=== PATIENT | female | born 1965 | race Caucasian/White ===

== ENCOUNTER 2020-07-21 08:09 | Outpatient (RCR) | payer OTHER, SELFPAY ==
--- NOTE | 2020-07-21 08:38 | OTOPEVAL ---
Thank you for referring Carmen Jose to [facility].? The patient is scheduled to be seen for therapy? ____x/week for ___ weeks. Please review, sign, date and return this plan of care JERSON. I agree with and certify that the following plan of care is medically necessary. Referring Physician Date Admitting Provider: Attending Provider: Virginie Jimenez, PRODUCTION CONTROL COORDINATING CLERK Referring Provider: *OT Outpatient Evaluation Start: 07/21/20 07:05 Freq: Status: Active Protocol: [place] 07/21/20 07:05 [facility] [place]Rec[place] 07/21/20 08:34 [facility] [id number] Therapy Assessment Status Assessment Status Assessment Status Evaluation Evaluation Information Problem Diagnosis decreased ROM, decreased strength Onset 05/24/20 Cause R ulnar fx Subjective Information Patient reports that she fell Query Text:As Reported By Patient/ and broke her R wrist. Family Patient was in cast and had it removed July 18. Patient reports that things have been going well since having the cast removed. Patient reports that her R thumb is sore as well as limited supination. 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 Patient has a difficult time with painting and doing dishes. Patient reports moderate difficulty with opening containers, doing outside production inspector, and carrying objects. Patient is unable to perform recreation activities secondary to R wrist. Quick DASH: 56.8% Diagnostic Tests X-Rays For This Problem Yes Prior Level of Function Activity Level (Last 3 Months) Hand Dominance Right Activity of Daily Living Ability Independent Indoor/Home Mobility Independent Community Mobility Independent Stairs Ability Independent Functional Cognition (Planning, Shopping Independent , Taking Medications) Cooking Yes Cleaning Yes Laundry Yes Shopping Yes Driving Yes Home Setting Home Type House Living Situation With Spouse Mobility Assistive Devices (Used Last 3 None Months) Pain Ass
--- NOTE | 2020-08-12 10:07 | PCOTNOTE ---
OCCUPATIONAL THERAPY UPDATE FOR [facility] Subjective: Patient reports no complaints and feels her right wrist is doing very well. Patient reports no pain and states that she is able to perform all her job duties as well as ADLs and IADLs. Objective: Pain: 0/10 ROM: R wrist extension: 65, R wrist flexion: 70 Strength: Nanoelectronics Engineer: 30# Lateral Pinch: 9# Sensation: Within normal limits Patient reports and demonstrates independence with home exercise program. Assessment: Patient is a 55 year old female who has been seen for 6 OT sessions post R ulnar fracture. Patient has tolerated OT with good skill and has met all goals at this time. She has progressed with ROM and strength and demonstrates no pain as well as normal sensation. Patient is independent with home exercise program and is discharged from skilled OT services at this time. Plan: Patient is discharged from skilled OT services at this time secondary to goal obtainment and lack of further concerns. Thanks, Codie Recinos, OTR/L
== END 2020-08-12 14:15 | disposition home or self-care (01) ==
LOC: CHSOT 08:09
PROVIDERS: Visit Provider Nurse Practitioner Family
DX: S52.291D Other fracture of shaft of right ulna, subsequent encounter for closed fracture with routine healing (principal)
CPT/HCPCS: 97014; 97110; 97140; 97165; G0283

== ENCOUNTER 2020-11-13 10:03 | Outpatient (CLI) | payer OTHER, SELFPAY | END 2020-11-13 10:04 | disposition home or self-care (01) | LOC: CHSLAB 10:04 | PROVIDERS: PCP Family Medicine; Visit Provider Family Medicine | DX: T45.511A Poisoning by anticoagulants, accidental (unintentional), initial encounter (principal) | CPT/HCPCS: 36415; 85610 ==

== ENCOUNTER 2020-11-14 02:50 | Observation (INO) | payer OTHER, SELFPAY ==
[2020-11-14] VITALS (16 sets, daily range): BP systolic 108–143; BP diastolic 62–86; PULSE 60–80; RESP 16–20; TEMP 36.6–38.2; O2SAT 95–98; BMI 38.9
--- NOTE | ~2020-11-14 | CT_ITS ---
EXAMINATION: CT LE LT wo con DATE: 11/14/2020 04:04 INDICATION: Left thigh hematoma. TECHNIQUE: Computed tomography (CT) of the left thigh and knee was performed without intravenous cont rast. Automated exposure control and iterative reconstruction technique were employed. The dose-lengt h product was 1016.96 mGy-cm. COMPARISON: None FINDINGS: Bone alignment is normal. No fracture. There is mild osteoarthritis of left hip and left kn ee. No knee joint effusion. There is a hematoma in distal left sartorius muscle measuring 4.5 x 17 cm . There is subcutaneous fat stranding in the thigh with small subcutaneous hematomas, consistent with recent dog bite. No radiopaque foreign body. IMPRESSION: 1. Hematoma in distal left sartorius muscle. Reviewed, dictated and finalized at location A. MBLER TYPE BAR AND SEGMENT
--- NOTE | ~2020-11-14 | XR_ITS ---
XR hand RT 2V DATE: 11/14/2020 04:04 INDICATION: Hand injury, pain TECHNIQUE: AP and lateral views COMPARISON: None FINDINGS: Diffuse osteopenia. There is a healed were advanced healing distal ulnar shaft fracture. No recent fracture or dislocation. No periosteal reaction or bone destruction. IMPRESSION: Advanced healing or healed old distal ulnar shaft fracture Diffuse osteopenia Reviewed, dictated and finalized at location A. HOUSE LOGISTICS MANAGER
[2020-11-14] MEDS: MORPHINE SULFATE (*CRX) 2 MG/ML INJ IV PUSH ×2 (04:09→09:08)
[2020-11-14 04:10] LABS: Basophils Absolute Auto 0.04 K/mm3 (0.00-0.10); Basophils Percent Auto 0.7 % (0.0-1.0); Eosinophils Absolute Auto 0.14 K/mm3 (0.02-0.50); Eosinophils Percent Auto 2.5 % (1.0-6.0); Hematocrit 43.2 % (35.0-49.0); Hemoglobin 13.9 g/dL (12.0-15.0); Immature Granulocyte Absolute 0.02 K/mm3 (0.00-0.00); Immature Granulocyte Percent A 0.4 % (0.0-0.0); Immature Platelet Fraction Pct 2.9 % (1.0-7.0); Lymphocytes Absolute Auto 1.59 K/mm3 (1.10-4.50); Lymphocytes Percent Auto 28.2 % (18.0-42.0); Mean Corpuscular HGB Conc 32.2 g/dL (32.0-36.0); Mean Corpuscular Volume 90.2 fL (78.0-102.0); Mean Platelet Volume 10.9 fl (9.2-11.8); Monocytes Percent Auto 8.9 % (2.0-11.0); Neutrophils Absolute Auto 3.4 K/mm3 (1.7-7.2); Neutrophils Percent Auto 59.3 % (50.0-70.0); Platelet Count Result 87 K/mm3 (150-420); Red Blood Count 4.79 M/mm3 (4.20-5.40); Red Cell Distribution Width 14.2 % (11.6-14.4); White Blood Count 5.6 K/mm3 (4.8-10.8)
[2020-11-14] MEDS: SODIUM CHLORIDE 0.9% IV 1,000 ML 999 ML IV CONT (04:10)
[2020-11-14 04:25] LABS: Alanine Aminotransferase 36 U/L (14-59); Albumin Level 3.2 g/dL (3.4-5.0); Alkaline Phosphatase 134 U/L (46-116); Anion Gap 8 mmol/L (8-16); Aspartate Amino Transferase 41 U/L (15-37); Bilirubin,Total 0.9 mg/dL (0.00-1.00); Blood Urea Nitrogen 12 mg/dL (7-18); CRP 2.8 mg/dL (0.0-0.9); Calcium 8.7 mg/dL (8.5-10.1); Carbon Dioxide 30 mmol/L (21-32); Chloride 104 mmol/L (98-108); Estimated CRCL calculation 92 ml/min; Estimated Glomerular Filt Rate > 60; Glucose 108 mg/dL (70-99); Osmolality Calculated 294 mOsm/kg (285-295); Potassium 4.3 mmol/L (3.5-5.1); Sodium 142 mmol/L (136-145); Total Protein 6.9 g/dL (6.4-8.2)
[2020-11-14 04:29] LABS: Lactic Acid Reflex 1.2 mmol/L (0.4-2.0)
[2020-11-14 04:34] LABS: Prothrombin Time > 90.0 Seconds (9.50-12.10)
[2020-11-14 04:35] LABS: INR > 8.0
--- NOTE | 2020-11-14 04:42 | ED.LOWEXIN ---
HPI - Extremity Injury (Lower) General Chief Complaint: Extremity Injury, Lower Stated Complaint: Left leg and right hand third digit Source: patient Mode of arrival: ambulatory Limitations: no limitations History of Present Illness HPI Narrative: this is a 55-year-old female that presents with a hematoma to her left medial thigh after she had a dog bite approximately 10 to 11 days ago by her personal dog, did contact her primary care physician and and was seen at [facility] in [facility] emergency department and was given a dose of antibiotics and was sent home with p.o. antibiotics. INR yesterday was 8, patient is on Coumadin for DVTs of her lower extremities. The patient also has some a puncture wound with some swelling on her right hand. Patient presents this evening because of increasing pain, did ambulate with no paralysis of the lower extremity has a strong pulse on the left lower extremity, currently there is no drainage there is some warmth and tenderness over the left medial thigh and warmth and tenderness and swelling of the right hand. Patient has a history of DVTs currently on Coumadin and was advised to hold her Coumadin by her primary care physician, and has a history of thyroid disorder and her thyroid medication is currently on hold because of an upcoming thyroid ablation. Currently there is no fever or chills, no nausea vomiting no shortness of breath. complaint: thigh injury and leg injury Injury: Left: thigh ( hematoma) Type of Injury: other ( dog bite with hematoma left medial thigh) Place: home Severity: severe Severity scale (1-10): 9 Relieving factors: NSAID Exacerbating factors: palpation Context: other ( dog bite) Associated symptoms: swelling and ambulatory Other symptoms: none Treatments prior to arrival: NSAIDS Related Data Home Medications Medication Instructions Recorded Confirmed cephalexin 500 mg PO DAILY 11/14/20 11/14/20 metoprolol succinate 50 mg PO DAILY 11/14/20 11/14/20 tramadol 50 mg PO PRN PRN 11/14/20 11/14/20 warfarin 2 mg PO DAILY 11/14/20 11/14/20 Allergies Allergy/AdvReac Type Severity Reaction Status Date / Time No Known Allergies Allergy Verified 11/14/20 04:23 Review of Systems Review of Systems: All systems reviewed & are unremarkable except as noted in HPI and below PMFSH Past Medical History Medical History DVT (deep vein thrombosis) in Exam Const: General: no acute distress and alert Orientation/consciousness: patient oriented x3 HENMT: Head: normal to inspection Eyes: Conjunctivae: conjunctivae normal Pupils: Equal, round and reactive pupils present Neck: Neck: normal visual inspection, no lymphadenopathy and no meningeal signs Chest: Chest palpation & inspection: normal inspection of the chest Resp: Effort & Inspection: normal respiratory effort Auscultation: clear to auscultation bilaterally Cardio: Rate: regular rate Rhythm: regular rhythm GI: GI Palp: Yes Soft to palpation Percussion: Yes normal to percussion : General: Yes no CVA tenderness Skin: Other: has hematoma approximately 5x15cm tender with palpation with a good strong pedal pulse on the left upper medial thigh. Has a small puncture wound with some swelling of her right hand Neuro: General: patient oriented x3, moves all extremities, no meningeal signs and no focal motor deficits Extrem: Other: hematoma to her left medial thigh with swelling to her right hand Psych: Mental Status: mental status grossly normal Course Course Emergency Course: reassessment patient, patient received IV morphine 2 mg and her pain level has improved, reviewed CT and x-ray findings with the patient and reviewed her INR which was still above 8, and advised that we will be giving her subcu injection of vitamin K 10 mg and a dose of IV Zosyn. The patient understands it will be admitting her to the medical floor with pain control and IV
[2020-11-14 04:52] LABS: Creatine Kinase 134 U/L (26-192)
[2020-11-14] MEDS: PHYTONADIONE INJ 10 MG/ML AMP SUB-Q (04:57)
--- NOTE | 2020-11-14 06:17 | PC.NURSE ---
Pt to for services of the hospitalist. Pt is alert and oriented x4 and states her dogs were having a fight and she attempted to break up the fight; In doing so, she was bitten by one of the dogs. Pt has a hx of DVT's in both legs and takes coumadin. Pt was oriented to the room, bed, TV and call light system and pt doesnt voice any concerns at this time.
[2020-11-14] MEDS: LACTATED RINGERS 1,000 ML 100 ML IV CONT ×2 (06:49→21:43)
--- NOTE | 2020-11-14 07:37 | PM.IMHP ---
H&P: HPI History of Present Illness Date/Time: 11/14/20 07:37 patient was admitted into observation for dog bite hematoma elevated INR and will be receiving IV antibiotics Chief Complaint: dog bite and wound to right middle finger with swelling Narrative: Carmen Jose is a 55 year old female who comes in with pain in her right middle finger in 10 days after having been bit by her own dog. Patient did go to an outside facility and was given Keflex for the dog bite. Patient states this did not improve and her leg is more swollen as is the right middle finger from an accidental cut with a knife at home. Patient was given Zosyn in the ER and this will continue while hospitalized. Also patient is taking Coumadin for a DVT. Patient's INR was greater than 8 and was given vitamin K in the ER with a recheck of her INR being greater than 8. Patient is going to be receiving another dose of vitamin K as well as 2 units of FFP. Patient does not complain of any other issues at this time such as headache dizziness breathing problems chest pain abdominal pain and only has minimal tenderness in the left knee this morning however she did receive morphine prior to interview and exam. Review of Systems Constitutional: Constitutional: Reports no additional constitutional complaints, Denies body ache(s), Denies chills and Denies fever(s) Cardiovascular: Cardiovascular: Reports no additional cardiovascular complaints, Denies chest pain, Denies chest pain at rest and Denies chest pain with activity Respiratory: Respiratory: Reports no additional respiratory complaints, Denies dyspnea and Denies dyspnea on exertion Gastrointestinal: Gastrointestinal: Reports no additional gastrointestinal complaints Genitourinary: Genitourinary: Reports no additional female genitourinary complaints Musculoskeletal: Comments: Patient admits to swelling to the left leg above the knee midline along with bite prince and bruising from the knee to the mid upper thigh. And she also notes swelling to the right middle finger from accidental cut with a knife. Neurologic: Comments: Patient denies any loss of sensation PMFSH Past Medical History Medical History (Updated 11/14/20 @ 12:49 by ADRIÁN Belle) Closed lumbar vertebral fracture DVT (deep vein thrombosis) in Hypertension Surgical History Surgical History (Updated 11/14/20 @ 12:38 by ADRIÁN Belle) H/O vascular surgery History of partial hysterectomy Previous back surgery Family History Family History Mother Diabetes mellitus Social History Social History Smoking status: Never smoker Second hand tobacco smoke exposure: No Alcohol intake: never Substance use: never Substance use type: does not use Gender identity (if verbalized by the patient): Female Sexual Orientation (if Verbalized by the Patient): Straight or Heterosexual Spiritual care concerns: No Meds Home Medications and Allergies Home Medications Medication Instructions Recorded Confirmed Type cephalexin 500 mg PO DAILY 11/14/20 11/14/20 History metoprolol succinate 50 mg PO DAILY 11/14/20 11/14/20 History tramadol 50 mg PO PRN PRN 11/14/20 11/14/20 History warfarin 2 mg PO DAILY 11/14/20 11/14/20 History Allergies Allergy/AdvReac Type Severity Reaction Status Date / Time No Known Allergies Allergy Verified 11/14/20 04:23 Vital Signs Vital Signs - 24 hr 11/14/20 02:50 11/14/20 05:02 11/14/20 05:04 Temperature 97.8 F 97.8 F Pulse Rate 75 61 60 Respiratory Rate 20 20 18 Blood Pressure 143/77 H 128/72 128/72 Pulse Oximetry 97 97 97 11/14/20 06:00 11/14/20 07:27 Temperature 98.8 F 98.5 F Pulse Rate 64 66 Respiratory Rate 20 18 Blood Pressure 138/76 115/67 Pulse Oximetry 96 95 Exam Const: General: cooperative, comfortable, no acute distress, alert, awake
[2020-11-14] MEDS: METOPROLOL SUCCINATE EXT REL 50 MG TABCR PO (09:03)
[2020-11-14] MEDS: ONDANSETRON INJ 4 MG/2 ML VIAL IV PUSH (09:06)
--- NOTE | 2020-11-14 09:09 | PC.NURSE ---
Morphine given for pain in right index finger and left leg, index finger swollen, noted to have injury by utility knife prior to arrival
--- NOTE | 2020-11-14 10:08 | PC.NURSE ---
pain slightly improved, no nausea from shot, fluids infusing and left leg on pillow, no change in appearance of right middle finger
--- NOTE | 2020-11-14 11:32 | PC.NURSE ---
ice to finger for comfort
[2020-11-14 12:08] LABS: Prothrombin Time > 90.0 Seconds (9.50-12.10)
--- NOTE | 2020-11-14 12:08 | PC.NURSE ---
INR reported to hospitalist, still greater than 8.0, awaiting orders
[2020-11-14 12:09] LABS: INR > 8.0
[2020-11-14] MEDS: PHYTONADIONE ADULT INJ 10 MG in DEXTROSE 5% IN WATER 50 ML 100 MG IVPB (12:41)
[2020-11-14] MEDS: SODIUM CHLORIDE 0.9% IV 250 ML 30 ML IV CONT (13:35)
[2020-11-14 16:23] LABS: Prothrombin Time 20.8 Seconds (9.50-12.10)
--- NOTE | 2020-11-14 18:22 | PC.NURSE ---
Patient completed blood product infusion. No c/o related to infusion. Patient up to bathroom as needed. Gait steady. Ate small amount of supper, taking p.o. fluids well.
[2020-11-14] MEDS: ACETAMINOPHEN 325 MG TABLET 650 MG PO (19:29)
--- NOTE | 2020-11-14 19:30 | PC.NURSE ---
pt given fresh ice pack and second ice pack for knee and finger, pt resting in bed, pain medication given
[2020-11-14] MEDS: HYDROcodone/acetaminophen (*CRX) 5-325 MG TABLET 1 TAB PO (21:43)
--- NOTE | 2020-11-14 21:45 | PC.NURSE ---
new bag of iv fluids began, fluids infusing per order, pain not relieved with previous medication, a different pain med given see MAR
--- NOTE | 2020-11-14 23:40 | PC.NURSE ---
iv antibiotics infusing, pt denies any other needs at this time, belongings and call light within reach
[2020-11-15] VITALS (7 sets, daily range): BP systolic 120–133; BP diastolic 68–75; PULSE 60–78; RESP 18; TEMP 36.6–37.7; O2SAT 97–99
--- NOTE | 2020-11-15 01:10 | PC.NURSE ---
pt resting in bed watching tv, denies any pain or needs at this time, no evidence of distress noticed, belongings within reach.
--- NOTE | 2020-11-15 02:35 | PC.NURSE ---
pt resting in bed, no evidence of distress noted, iv fluids infusing per order, belongings and call light within reach
[2020-11-15] MEDS: HYDROcodone/acetaminophen (*CRX) 5-325 MG TABLET 1 TAB PO ×4 (04:39→20:11)
[2020-11-15 05:43] LABS: Basophils Absolute Auto 0.02 K/mm3 (0.00-0.10); Basophils Percent Auto 0.5 % (0.0-1.0); Eosinophils Absolute Auto 0.09 K/mm3 (0.02-0.50); Eosinophils Percent Auto 2.3 % (1.0-6.0); Hematocrit 37.2 % (35.0-49.0); Hemoglobin 12.2 g/dL (12.0-15.0); Immature Granulocyte Absolute 0.01 K/mm3 (0.00-0.00); Immature Granulocyte Percent A 0.3 % (0.0-0.0); Immature Platelet Fraction Pct 2.7 % (1.0-7.0); Lymphocytes Absolute Auto 1.01 K/mm3 (1.10-4.50); Lymphocytes Percent Auto 26.2 % (18.0-42.0); Mean Corpuscular HGB Conc 32.8 g/dL (32.0-36.0); Mean Corpuscular Hemoglobin 29.8 pg (27.0-31.0); Mean Corpuscular Volume 90.7 fL (78.0-102.0); Mean Platelet Volume 10.6 fl (9.2-11.8); Neutrophils Absolute Auto 2.2 K/mm3 (1.7-7.2); Neutrophils Percent Auto 57.7 % (50.0-70.0); Platelet Count Result 69 K/mm3 (150-420); Red Cell Distribution Width 14.1 % (11.6-14.4)
[2020-11-15 05:56] LABS: INR 1.4; Prothrombin Time 14.4 Seconds (9.50-12.10)
[2020-11-15 05:59] LABS: Anion Gap 6 mmol/L (8-16); Blood Urea Nitrogen 8 mg/dL (7-18); Calcium 8.2 mg/dL (8.5-10.1); Carbon Dioxide 31 mmol/L (21-32); Chloride 105 mmol/L (98-108); Estimated CRCL calculation 93 ml/min; Estimated Glomerular Filt Rate > 60; Glucose 96 mg/dL (70-99); Osmolality Calculated 292 mOsm/kg (285-295); Sodium 142 mmol/L (136-145)
[2020-11-15] MEDS: METOPROLOL SUCCINATE EXT REL 50 MG TABCR PO (09:03)
[2020-11-15] MEDS: LACTATED RINGERS 1,000 ML 100 ML IV CONT ×2 (09:05→20:10)
--- NOTE | 2020-11-15 09:20 | PC.NURSE ---
l leg is knee up into thigh is different shades of purple and greens. dry wound on on top of thigh and bandaid to posterior. thigh is firm. ice pack applied. leg up on pillow. pain med given. see dec. r finger is swollen and tender to touch and ice pack applied. [place]
[2020-11-15] MEDS: WARFARIN (*PBKC) 2 MG TABLET PO (13:28)
--- NOTE | 2020-11-15 13:28 | PM.IMPN ---
Progress Note: A&P Assessment and Plan (1) Dog bite: Qualifiers: Encounter type: initial encounter Qualified Code(s): W54.0XXA - Bitten by dog, initial encounter Code(s): W54.0XXA - Bitten by dog, initial encounter Status: Acute Assessment and Plan: 11/14/2020 patient is receiving Zosyn, bite sites have scabbed over 11/15/2020 Continue with Zosyn, wounds healing, no drainage, swelling improved, remains tender (2) Swelling of right middle finger: Code(s): M79.89 - Other specified soft tissue disorders Status: Acute Assessment and Plan: 11/14/2020 patient has normal sensation to the tip of the swollen middle finger right hand, no drainage at the wound site, simple dressing in place, patient is on Zosyn 11/15/2020 continue with normal sensation to the tip of the finger, continue with Zosyn and simple dressing (3) Elevated INR: Code(s): R79.1 - Abnormal coagulation profile Status: Acute Assessment and Plan: 11/14/2020 patient is on Coumadin for DVT however that is being held at this time due to her elevated INR of greater than 8, received vitamin K in the ER, repeat INR again was greater than 8 and patient is to receive another 10 mg of vitamin K and 2 units fresh frozen plasma and then will recheck INR at that time 11/15/2020 INR 1.4 today, restarting Coumadin and will monitor closely (4) Hematoma: Code(s): T14.8XXA - Other injury of unspecified body region, initial encounter Status: Acute Assessment and Plan: 11/14/2020 ice to site with elevation, morphine for pain control, normal sensation to lower leg, pulses intact 11/15/2020 continue as above, [place] added yesterday as a longer lasting pain control medication (5) DVT (deep vein thrombosis) in : Code(s): O22.30 - Deep phlebothrombosis in , unspecified trimester Status: Acute Assessment and Plan: 11/14/2020 Coumadin was held due to elevated INR as noted above 11/15/2020 as noted above restarting Coumadin now that INR is 1.4 (6) Hypertension: Code(s): I10 - Essential (primary) hypertension Status: Acute Assessment and Plan: 11/14/2020 vital signs stable at this time continue metoprolol, monitor vital signs, make changes as necessary to medication 11/15/2020 VSS no changes to [id number] at this time Subjective Date/time seen: 11/15/20 13:28 Pt states that she is feeling fine today. States the swollen area is slide machine tender to touch. Explained to Pt that her coumadin was going to be restarted. She was also educated on diet, vitamins, and taking other medication with coumadin. Pt verbalized understanding. Pt denies breathing issues, no CP, no abdominal issues, no numbness to the finger or left lower leg. Review of Systems Constitutional: Constitutional: Reports no additional constitutional complaints Cardiovascular: Cardiovascular: Reports no additional cardiovascular complaints, Denies chest pain, Denies chest pain at rest and Denies chest pain with activity Respiratory: Respiratory: Reports no additional respiratory complaints, Denies chest congestion, Denies dyspnea and Denies dyspnea on exertion Gastrointestinal: Gastrointestinal: Reports no additional gastrointestinal complaints Genitourinary: Genitourinary: Reports no additional female genitourinary complaints Musculoskeletal: Musculoskeletal: Reports joint swelling (inner aspect of left knee d/t dog bit and hematoma) Exam Const: General: cooperative, comfortable, no acute distress, alert, awake and Physically active Nutritional Appearance: overweight Resp: Effort & Inspection: normal respiratory effort Auscultation: clear to auscultation bilaterally Cardio: Rate: regular rate Heart sounds: S1 normal heart sound present and S2 normal heart sound present Skin: Trauma: puncture (dog bite wounds healing well, area tendeer to touch, bruising) Neuro: General: oriented to person, oriented to place and
--- NOTE | 2020-11-15 17:54 | PC.NURSE ---
pt states she feels warm, temp checked 99.7, tylenol declined at this time
[2020-11-16] VITALS: BP 106/61; PULSE 65; RESP 16; TEMP 36.3; O2SAT 96
[2020-11-16] MEDS: HYDROcodone/acetaminophen (*CRX) 5-325 MG TABLET 1 TAB PO ×3 (00:12→11:18)
[2020-11-16 05:34] LABS: Hematocrit 37.8 % (35.0-49.0); Hemoglobin 12.3 g/dL (12.0-15.0); Immature Platelet Fraction Pct 2.9 % (1.0-7.0); Mean Corpuscular HGB Conc 32.5 g/dL (32.0-36.0); Mean Corpuscular Hemoglobin 29.8 pg (27.0-31.0); Mean Corpuscular Volume 91.5 fL (78.0-102.0); Platelet Count Result 57 K/mm3 (150-420); Red Blood Count 4.13 M/mm3 (4.20-5.40); Red Cell Distribution Width 14.1 % (11.6-14.4); White Blood Count 2.8 K/mm3 (4.8-10.8)
[2020-11-16 05:43] LABS: INR 1.1
[2020-11-16 05:47] LABS: Anion Gap 3 mmol/L (8-16); Blood Urea Nitrogen 8 mg/dL (7-18); Calcium 8.6 mg/dL (8.5-10.1); Carbon Dioxide 32 mmol/L (21-32); Chloride 107 mmol/L (98-108); Estimated CRCL calculation 88 ml/min; Estimated Glomerular Filt Rate > 60; Glucose 95 mg/dL (70-99); Osmolality Calculated 292 mOsm/kg (285-295); Potassium 4.7 mmol/L (3.5-5.1); Sodium 142 mmol/L (136-145)
[2020-11-16] MEDS: LACTATED RINGERS 1,000 ML 100 ML IV CONT (06:44)
[2020-11-16 08:00] VITALS: BP 122/71; PULSE 64; RESP 18; TEMP 37.2; O2SAT 95
[2020-11-16 09:11] VITALS: PULSE 64
[2020-11-16] MEDS: METOPROLOL SUCCINATE EXT REL 50 MG TABCR PO (09:11)
--- NOTE | 2020-11-16 10:54 | PM.DS ---
DS: Admitting Diagnosis Admitting Diagnosis Admitting Diagnosis: elevated INR, dog bite DS: Discharge Diagnosis Discharge Diagnosis (1) Dog bite: Qualifiers: Encounter type: initial encounter Qualified Code(s): W54.0XXA - Bitten by dog, initial encounter Code(s): W54.0XXA - Bitten by dog, initial encounter Status: Acute Assessment and Plan: 11/14/2020 patient is receiving Zosyn, bite sites have scabbed over 11/15/2020 Continue with Zosyn, wounds healing, no drainage, swelling improved, remains tender 11/16/2020 patient had her tetanus shot about 11 days ago when she had cut her finger, will send script to patient's pharmacy for Augmentin, swelling some improved, patient ambulating well, slightly less tender today (2) Swelling of right middle finger: Code(s): M79.89 - Other specified soft tissue disorders Status: Acute Assessment and Plan: 11/14/2020 patient has normal sensation to the tip of the swollen middle finger right hand, no drainage at the wound site, simple dressing in place, patient is on Zosyn 11/15/2020 continue with normal sensation to the tip of the finger, continue with Zosyn and simple dressing 11/16/2020 patient still has sensation to tip of her finger swelling is down only little, will give Augmentin as noted above (3) Elevated INR: Code(s): R79.1 - Abnormal coagulation profile Status: Acute Assessment and Plan: 11/14/2020 patient is on Coumadin for DVT however that is being held at this time due to her elevated INR of greater than 8, received vitamin K in the ER, repeat INR again was greater than 8 and patient is to receive another 10 mg of vitamin K and 2 units fresh frozen plasma and then will recheck INR at that time 11/15/2020 INR 1.4 today, restarting Coumadin and will monitor closely 11/16/[address] Peace, retail pos specialist/oncologist, regarding anticoagulation for patient's previous DVT for which she was started on Coumadin back in 1992 and the fact that she is thrombocytopenic with a platelet count of 57 today, recommendation was to not have patient on anticoagulation since her body is already anticoagulated due to her low platelet count, patient will need to follow-up with Dr. Peace within about a week, I appreciate consultation with Dr. Peace (4) Hematoma: Code(s): T14.8XXA - Other injury of unspecified body region, initial encounter Status: Acute Assessment and Plan: 11/14/2020 ice to site with elevation, morphine for pain control, normal sensation to lower leg, pulses intact 11/15/2020 continue as above, [place] added yesterday as a longer lasting pain control medication 11/16/2020 patient has not required any of her [place] with the exception of 1 dose on the , pain seems tolerable, she continues use ice pack (5) DVT (deep vein thrombosis) in : Code(s): O22.30 - Deep phlebothrombosis in , unspecified trimester Status: Acute Assessment and Plan: 11/14/2020 Coumadin was held due to elevated INR as noted above 11/15/2020 as noted above restarting Coumadin now that INR is 1.4 11/16/2020 please see note above under elevated INR for discharge plan (6) Hypertension: Code(s): I10 - Essential (primary) hypertension Status: Acute Assessment and Plan: 11/14/2020 vital signs stable at this time continue metoprolol, monitor vital signs, make changes as necessary to medication 11/15/2020 VSS no changes to [id number] at this time 11/16/2020 vital signs stable will not be making any changes to medication at this time DS: Summary Hospital Course Hospital Course: patient was given antibiotics for her dog bite and her INR that was elevated to greater than 8 has resolved and with the consultation with Dr. Peace patient does not need to be on anticoagulation therapy and will follow-up with this doctor after discharge. Time Spent with Patient Time attestation: Total time spent providing and/or coordinating d
--- NOTE | 2020-11-18 11:00 | PC.NURSE ---
Pt states she received and understood her discharge instructions. She also states It was nice, they were all really nice to me .
== END 2020-11-16 13:30 | disposition home or self-care (01) ==
LOC: CHSED 04:53 → CHS2ND 07:52
PROVIDERS: Family Medicine; Nurse Practitioner Family; Admitting Provider Emergency Medicine; Emergency Provider Emergency Medicine; PCP Family Medicine; Visit Provider Emergency Medicine
DX: S70.12XD Contusion of left thigh, subsequent encounter (principal); L03.116 Cellulitis of left lower limb; R79.1 Abnormal coagulation profile; D69.6 Thrombocytopenia, unspecified; S61.212D Laceration without foreign body of right middle finger without damage to nail, subsequent encounter; I10 Essential (primary) hypertension; W26.0XXD Contact with knife, subsequent encounter; W54.0XXD Bitten by dog, subsequent encounter; Z86.718 Personal history of other venous thrombosis and embolism; Z79.01 Long term (current) use of anticoagulants
CPT/HCPCS: 36415; 36430; 73120; 73700; 80048; 80053; 82550; 83605; 85025; 85027; 85055; 85610; 86140; 86900; 86901; 87040; 96361; 96365; 96366; 96367; 96372; 96375; 96376; 99285; A9270; G0378; G0379; J2270; J2405; J2543; J3430; J7030; J7050; J7120; P9017

== ENCOUNTER 2020-11-17 11:56 | Outpatient (RCR) | payer OTHER, SELFPAY ==
[2020-11-17 12:24] LABS: INR 1.1; Prothrombin Time 11.5 Seconds (9.50-12.10)
== END 2021-02-15 23:59 | disposition home or self-care (01) ==
LOC: CHSLAB 11:56
PROVIDERS: PCP Family Medicine; Visit Provider Family Medicine
DX: T45.511A Poisoning by anticoagulants, accidental (unintentional), initial encounter (principal)
CPT/HCPCS: 36415; 85610

== ENCOUNTER 2020-12-31 08:58 | Outpatient (CLI) | payer OTHER, SELFPAY ==
[2021-01-03 07:55] LABS: Total Triiodothyronine (T3) 125 ng/dL (76-181)
== END 2020-12-31 08:59 | disposition home or self-care (01) ==
LOC: CHSLAB 09:00
PROVIDERS: PCP Family Medicine
DX: E05.00 Thyrotoxicosis with diffuse goiter without thyrotoxic crisis or storm (principal)
CPT/HCPCS: 36415; 84480

== ENCOUNTER 2021-02-05 13:26 | Outpatient (CLI) | payer OTHER, SELFPAY ==
--- NOTE | 2021-02-05 13:45 | ECG_ITS ---
Measurements Intervals [place] Rate: 63 P: 64 ND: 140 QRS: 88 QRSD: 82 T: 59 QT: 405 QTc: 416 Interpretive Statements SINUS RHYTHM LOW QRS VOLTAGE IN PRECORDIAL LEADS NONSPECIFIC ST & T-WAVE ABNORMALITY- ANTEROLATERAL LEADS BASELINE ARTIFACT- II, III, AVF BORDERLINE ECG Electronically Signed On 02-05-2021 15:09:30 CDT by Tonio Fountain D.O.
== END 2021-02-05 13:27 | disposition home or self-care (01) ==
LOC: CHSCARD 13:27
PROVIDERS: PCP Family Medicine; Visit Provider Family Medicine
DX: E05.90 Thyrotoxicosis, unspecified without thyrotoxic crisis or storm (principal)
CPT/HCPCS: 93005

== ENCOUNTER 2021-05-08 11:25 | Outpatient (CLI) | payer OTHER, SELFPAY ==
--- NOTE | ~2021-05-08 | XR_ITS ---
EXAMINATION: XR lumbar spine 2-3V DATE: 05/08/2021 11:50 INDICATION: Lumbar radiculopathy TECHNIQUE: Anteroposterior and lateral views of the lumbar spine, and cone-down lateral view of the l umbosacral junction were obtained. COMPARISON: None FINDINGS: There is no fracture, dislocation, or subluxation. The vertebral body heights are maintaine d. There is moderate to severe loss of intervertebral disc space height at L5-S1. Mild loss of interv ertebral disc space height is present throughout the remainder of the lumbar spine. There is moderate facet osteoarthritis of the lower lumbar spine. Calcified atherosclerosis is noted. IMPRESSION: 1. Moderate lower lumbar spondylosis without acute findings. Reviewed, dictated and finalized at location A.
== END 2021-05-08 11:26 | disposition home or self-care (01) ==
LOC: CHSIMG 11:28
PROVIDERS: PCP Family Medicine; Visit Provider Family Medicine
DX: M54.16 Radiculopathy, lumbar region (principal)
CPT/HCPCS: 72100

== ENCOUNTER 2021-07-11 06:37 | Outpatient (CLI) | payer OTHER, SELFPAY ==
--- NOTE | ~2021-07-11 | MR_ITS ---
EXAMINATION: MR lumbar spine wo con DATE: 07/11/2021 07:34 INDICATION: Lumbar radiculopathy. TECHNIQUE: Magnetic resonance imaging (MRI) of the lumbar spine was performed without intravenous con trast. Sequences included sagittal T2-weighted FSE, sagittal T2-weighted FS FSE, sagittal T1-weighted FSE, and axial T2-weighted FSE. COMPARISON: Lumbar spine radiographs 05/08/2021 FINDINGS: Bone alignment is normal. Vertebral body heights are normal. There is mildly decreased disc height at L4-L5 and severely decreased disc height at L5-S1 with endplate remodeling. The distal spi nal cord signal intensity is normal. The conus medullaris is at L1. There are cysts in right kidney m easuring up to 2.3 cm. The following disc levels are specifically discussed: L1-L2: The disc does not extend beyond the endplate margin. There is mild bilateral facet joint osteo arthritis. There is no neural foraminal stenosis. There is no central canal stenosis. L2-L3: There is a left foraminal protrusion. There is mild bilateral facet joint osteoarthritis. Ther e is mild left neural foraminal stenosis. There is no central canal stenosis. L3-L4: There is a left foraminal protrusion. There is mild bilateral facet joint osteoarthritis. Ther e is mild left neural foraminal stenosis. There is no central canal stenosis. L4-L5: There is a left central protrusion with mass effect on left L5 nerve root in left lateral rece ss. There is moderate bilateral facet joint osteoarthritis. There is mild bilateral neural foraminal stenosis. There is mild central canal stenosis. There is severe stenosis of left lateral recess. L5-S1: The disc is bulging. There is severe bilateral facet joint osteoarthritis. There is mild bilat eral neural foraminal stenosis. There is no central canal stenosis. IMPRESSION: 1. Severe lower lumbar spondylosis. Of note, an extrusion at L4-L5 exerts mass effect on left L5 nerv e root. Reviewed, dictated and finalized at location A. IMPRESSION: 1. Severe lower lumbar spondylosis. Of note, an extrusion at L4-L5 exerts mass effect on left L5 nerve root.
== END 2021-07-11 06:38 | disposition home or self-care (01) ==
LOC: CHSIMG 06:40
PROVIDERS: PCP Family Medicine; Visit Provider Physician Assistant
DX: M54.16 Radiculopathy, lumbar region (principal); M47.816 Spondylosis without myelopathy or radiculopathy, lumbar region
CPT/HCPCS: 72148

== ENCOUNTER 2022-07-08 10:12 | Outpatient (CLI) | payer OTHER, SELFPAY ==
[2022-07-08 10:55] LABS: Free T4 Free Thyroxine 1.58 ng/dL (0.76-1.46)
[2022-07-08 11:21] LABS: Thyroid Stimulating Hormone < 0.01 uIU/mL (0.36-3.74)
== END 2022-07-08 10:13 | disposition home or self-care (01) ==
LOC: CHSLAB 10:19
PROVIDERS: PCP Family Medicine
DX: E05.90 Thyrotoxicosis, unspecified without thyrotoxic crisis or storm (principal)
CPT/HCPCS: 36415; 84439; 84443

== ENCOUNTER 2022-12-23 07:01 | Outpatient (CLI) | payer OTHER, SELFPAY ==
--- NOTE | ~2022-12-23 | MR_ITS ---
MRI of the lumbar spine Clinical History: Chronic back pain, prior surgery Technique: Axial T2-weighted images, and sagittal T1-weighted, T2-weighted, and T2 fat-sat images wer e acquired. COMPARISON: 07/11/2021 Findings: No acute fracture or subluxation seen in the lumbar spine. Probable mild chronic compressio n deformity of T11 versus Schmorl's node. Additional Schmorl's node noted at the superior endplate of T12 with minimal marrow edema. No bone marrow signal abnormality seen in the lumbar spine itself. At L1-L2, L2-L3, there is no disc bulge or herniation. Minimal facet joint degenerative changes prese nt at these levels. No spinal canal stenosis or neural foraminal narrowing. At L3-L4, there is minimal disc bulge and facet arthropathy. There is mild central canal stenosis. Ne ural foramina are preserved. At L4-L5, there is small central disc protrusion with mild facet arthropathy. There is minimal centra l canal stenosis. Bilateral neural foramina are preserved. At L5-S1, there is no disc bulge or herniation. There is no spinal canal stenosis or definite neural foraminal narrowing. Paravertebral soft tissues are unremarkable. Impression: Mild degenerative spondylosis in the lumbar spine, as detailed above. Probable subacute Schmorl's node of the superior endplate of T12, with mild marrow edema. Probable mild chronic compression deformity at T11 versus Schmorl's node. Reviewed, dictated and finalized at [facility]. Impression: Mild degenerative spondylosis in the lumbar spine, as detailed above. Probable subacute Schmorl's node of the superior endplate of T12, with mild mar row edema. Probable mild chronic compression deformity at T11 versus Schmorl's node.
== END 2022-12-23 07:02 | disposition home or self-care (01) ==
LOC: CHSIMG 07:03
PROVIDERS: PCP Family Medicine
DX: M54.16 Radiculopathy, lumbar region (principal); M43.06 Spondylolysis, lumbar region
CPT/HCPCS: 72148

== ENCOUNTER 2023-01-26 07:50 | Outpatient (CLI) | payer OTHER, SELFPAY ==
--- NOTE | ~2023-01-26 | CT_ITS ---
Non-contrast CT scan of the Abdomen and Pelvis Clinical indication: Abdominal pain Technique: 2.5 mm axial scans were obtained through the abdomen and pelvis without intravenous or or al contrast. Dose reduction technique was used on this scan by utilizing automated exposure control a nd iterative reconstruction technique. The dose-length product (DLP) was 1252.83 mGy-cm. Findings: Images through the lung bases reveal no abnormalities. There is no evidence of renal or ureteral calculi. The kidneys and the ureters are nondilated. Nodular contour of the liver noted. No focal hepatic mass or biliary dilatation seen. Spleen is enlar ged, measuring 15.2 cm in length. The pancreas, gallbladder, and adrenals appear normal. There is no aortic aneurysm. There is no evidence of bowel obstruction. Images through the pelvis were performed. There is no evidence of ascites or lymphadenopathy. Urinary bladder unremarkable. No adnexal mass seen. Mild chronic compression deformity of T11 noted. Impression: Cirrhotic liver with associated splenomegaly. Mild chronic compression deformity of T11. Reviewed, dictated and finalized at [facility]. Impression: Cirrhotic liver with associated splenomegaly. Mild chronic compression deformity of T11.
== END 2023-01-26 07:51 | disposition home or self-care (01) ==
LOC: CHSIMG 07:51
PROVIDERS: PCP Family Medicine; Visit Provider Family Medicine
DX: R10.9 Unspecified abdominal pain (principal); K74.60 Unspecified cirrhosis of liver; R16.1 Splenomegaly, not elsewhere classified; M43.8X4 Other specified deforming dorsopathies, thoracic region
CPT/HCPCS: 74176

== ENCOUNTER 2023-02-24 07:06 | Outpatient (CLI) | payer OTHER, SELFPAY ==
--- NOTE | ~2023-02-24 | MM_ITS ---
EXAMINATION: MM screening corry BI w dmitry HISTORY: Screening mammogram TECHNIQUE: Craniocaudal and mediolateral oblique 3-D tomosynthesis images were obtained and synthetic 2-D images were generated. CAD analysis was submitted and interpreted. COMPARISON: No prior mammogram is available for comparison at this institution. BREAST PARENCHYMAL COMPOSITION: The breasts are almost entirely fatty. FINDINGS: No suspicious mass, calcification, or architectural distortion are identified in either alia ast to suggest malignancy. IMPRESSION: 1. No mammographic evidence of malignancy. 2. Recommend routine screening mammography in one year. BI-RADS Category 1: Negative Reviewed, dictated and finalized at location A.
[2023-02-24 08:31] LABS: Thyroid Stimulating Hormone 1.04 uIU/mL (0.36-3.74)
== END 2023-02-24 07:07 | disposition home or self-care (01) ==
PROVIDERS: PCP Family Medicine
DX: Z12.31 Encounter for screening mammogram for malignant neoplasm of breast (principal); E05.90 Thyrotoxicosis, unspecified without thyrotoxic crisis or storm
CPT/HCPCS: 36415; 77063; 77067; 84443

== ENCOUNTER 2023-03-21 10:09 | Outpatient (CLI) | payer OTHER, SELFPAY ==
[2023-03-21 10:57] LABS: Prothrombin Time 63.1 Seconds (9.50-12.10)
[2023-03-21 11:04] LABS: INR 6.6
== END 2023-03-21 10:10 | disposition home or self-care (01) ==
LOC: CHSLAB 10:12
PROVIDERS: PCP Family Medicine; Visit Provider Registered Nurse
DX: Z79.01 Long term (current) use of anticoagulants (principal)
CPT/HCPCS: 36415; 85610

== ENCOUNTER 2023-03-24 07:15 | Outpatient (CLI) | payer OTHER, SELFPAY ==
[2023-03-24 08:00] LABS: INR 2.2; Prothrombin Time 22.6 Seconds (9.50-12.10)
== END 2023-03-24 07:16 | disposition home or self-care (01) ==
LOC: CHSLAB 07:18
PROVIDERS: PCP Family Medicine; Visit Provider Registered Nurse
DX: Z79.01 Long term (current) use of anticoagulants (principal)
CPT/HCPCS: 36415; 85610

== ENCOUNTER 2024-01-20 07:39 | Outpatient (CLI) | payer OTHER, SELFPAY ==
[2024-01-20 08:18] LABS: INR 3.2; Prothrombin Time 32.3 Seconds (9.50-12.1)
== END 2024-01-20 07:40 | disposition home or self-care (01) ==
LOC: CHSLAB 07:41
PROVIDERS: PCP Family Medicine; Visit Provider Family Medicine
DX: Z79.01 Long term (current) use of anticoagulants (principal)
CPT/HCPCS: 36415; 85610

== ENCOUNTER 2024-03-15 13:31 | Outpatient (CLI) | payer OTHER, SELFPAY ==
--- NOTE | ~2024-03-15 | MM_ITS ---
EXAMINATION: MM screening corry BI w dmitry HISTORY: Screening TECHNIQUE: Craniocaudal and mediolateral oblique 3-D tomosynthesis images were obtained and synthetic 2-D images were generated. CAD analysis was submitted and interpreted. COMPARISON: 02/24/2023 BREAST PARENCHYMAL COMPOSITION: Not dense: There are scattered areas of fibroglandular density. FINDINGS: There is no evidence of suspicious mass, calcification, or architectural distortion to sugg est malignancy in either breast. There has been no suspicious interval change. IMPRESSION: 1. No mammographic evidence of malignancy. 2. Recommend routine screening mammography in one year. BI-RADS Category 1: Negative Reviewed, dictated and finalized at location B.
[2024-03-15 13:54] LABS: Hematocrit 42.3 % (35.0-49.0); Hemoglobin 13.9 g/dL (12.0-15.0); Immature Platelet Fraction Pct 6.2 % (1.0-7.0); Mean Corpuscular HGB Conc 32.9 g/dL (32-36); Mean Corpuscular Hemoglobin 30.2 pg (27.0-31.0); Mean Platelet Volume 10.9 fl (9.2-11.8); Platelet Count Result 54 K/mm3 (150-420); Red Cell Distribution Width 14.6 % (11.6-14.4); White Blood Count 3.6 K/mm3 (4.8-10.8)
[2024-03-15 14:07] LABS: Band Neutrophils Percent 0 % (0-6); Basophils Percent Manual 0 % (0-1); Eosinophils Absolute Manual 0.03 K/mm3 (0.02-0.50); Eosinophils Percent Manual 1 % (1-6); Lymphocytes Absolute Manual 1.08 K/mm3 (1.1-4.5); Lymphocytes Percent Manual 30 % (18-44); Monocytes Percent Manual 3 % (3-9); Neutrophils Absolute Manual 2.37 K/mm3 (1.7-7.2); Neutrophils Percent Manual 66 % (46-73); Platelet Estimate Decreased (Adequate); Total Cells Counted 100
== END 2024-03-15 13:32 | disposition home or self-care (01) ==
LOC: CHSIMG 13:33
PROVIDERS: PCP Family Medicine; Visit Provider Registered Nurse
DX: Z12.31 Encounter for screening mammogram for malignant neoplasm of breast (principal); D69.6 Thrombocytopenia, unspecified
CPT/HCPCS: 36415; 77063; 77067; 85025; 85055

== ENCOUNTER 2024-05-12 07:03 | Outpatient (CLI) | payer OTHER, SELFPAY ==
--- NOTE | ~2024-05-12 | MR_ITS ---
EXAMINATION: MR brain/brain stem wo con DATE: 05/12/2024 07:59 INDICATION: Memory loss. TECHNIQUE: Magnetic resonance imaging (MRI) of the brain and brainstem was performed without intraven ous contrast. COMPARISON: None. FINDINGS: There is no intracranial hemorrhage, acute infarction, or abnormal intracranial mass lesion . The ventricles are normal in size. The paranasal sinuses are clear. The mastoid air cells are sosa l. The orbits are normal. IMPRESSION: 1. Normal brain. Reviewed, dictated and finalized at location A. IMPRESSION: 1. Normal brain.
== END 2024-05-12 07:04 | disposition home or self-care (01) ==
LOC: CHSIMG 07:05
PROVIDERS: PCP Family Medicine; Visit Provider Registered Nurse
DX: R41.3 Other amnesia (principal)
CPT/HCPCS: 70551

== ENCOUNTER 2024-05-18 16:23 | Outpatient (CLI) | payer OTHER, SELFPAY ==
[2024-05-18 16:46] LABS: Basophils Absolute Auto 0.04 K/mm3 (0.00-0.10); Basophils Percent Auto 0.7 % (0.0-1.0); Eosinophils Absolute Auto 0.06 K/mm3 (0.02-0.50); Eosinophils Percent Auto 1.1 % (1.0-6.0); Hemoglobin 14.7 g/dL (12.0-15.0); Immature Granulocyte Absolute 0.02 K/mm3 (0.00-0.00); Immature Granulocyte Percent A 0.4 % (0.0-0.0); Immature Platelet Fraction Pct 6.5 % (1.0-7.0); Lymphocytes Absolute Auto 0.87 K/mm3 (1.10-4.50); Lymphocytes Percent Auto 16.1 % (18.0-42.0); Mean Corpuscular HGB Conc 34.2 g/dL (32-36); Mean Corpuscular Hemoglobin 30.6 pg (27.0-31.0); Mean Corpuscular Volume 89.4 fL (78.0-102.0); Mean Platelet Volume 12.1 fl (9.2-11.8); Monocytes Absolute Auto 0.53 K/mm3 (0.10-0.90); Monocytes Percent Auto 9.8 % (2.0-11.0); Neutrophils Percent Auto 71.9 % (50.0-70.0); Platelet Count Result 65 K/mm3 (150-420); Red Blood Count 4.81 M/mm3 (4.20-5.40); Red Cell Distribution Width 14.5 % (11.6-14.4); White Blood Count 5.4 K/mm3 (4.8-10.8)
== END 2024-05-18 16:24 | disposition home or self-care (01) ==
LOC: CHSLAB 16:25
PROVIDERS: PCP Family Medicine; Visit Provider Registered Nurse
DX: D69.6 Thrombocytopenia, unspecified (principal)
CPT/HCPCS: 36415; 85025; 85055

== ENCOUNTER 2024-05-24 07:10 | Outpatient (CLI) | payer OTHER, SELFPAY ==
--- NOTE | ~2024-05-24 | US_ITS ---
US transvaginal Ordering provider: Matteo Beal, [employer] History: . PELVIC PAIN . Comparison: None. Technique: endovaginal ultrasound of the pelvis (Doppler ultrasound interrogation techniques used as needed for this exam.) FINDINGS: CERVIX: Normal. UTERUS: Measures 7.2x 4.5x 3.6 cm in length which is within normal limits and is anteverted. No myom etrial masses. ENDOMETRIUM: Normal in thickness measuring 5.8 mm. No endometrial masses, cysts or fluid. CUL DE SAC: Minimal free fluid. RIGHT OVARY: Not visualized. LEFT OVARY: Not visualized. ADNEXA: Normal. No mass. IMPRESSION: Nonvisualization of the ovaries. Otherwise, normal pelvic ultrasound. Reviewed, dictated and finalized at location A.
== END 2024-05-24 07:11 | disposition home or self-care (01) ==
PROVIDERS: PCP Family Medicine; Visit Provider Registered Nurse
DX: R10.2 Pelvic and perineal pain (principal)
CPT/HCPCS: 76830

== ENCOUNTER 2024-05-30 14:34 | Outpatient (RCR) | payer OTHER, SELFPAY ==
--- NOTE | 2024-05-30 15:12 | PTOPEVAL1 ---
Assessment and note entered by Aron Roque Evaluation Information Assessment Status Evaluation ICD-10 Condition Codes (PT) Pain in low back M54.50,M54.16 Onset 03/10/24 Subjective Information Pt. reports that she has had back pain since March. She reports that pain had initially worsened, but in the past couple weeks has gotten better. She states that she has also developed pain into the right groin. She states that pain is worsened with steps, walking and standing. Pain is eased with rest. She states that she had surgery around her lumbar spine in 2019. She denies any fusion. She reports that pain will wake her at night, and describes pain in the right buttock. 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 She states that her goal is to reduce her pain and to walk better. Reported Pain Level Pain Score 7: Self Report Assessment PT Clinical Summary Pt. is a 58 year old female who enters the clinic with a diagnosis of lumbar radiculopathy. She presents with impaired lumbar mobility, impaired core and l.e. strength, impaired postural awareness, functional decline and pain on this date. Continued skilled PT is indicated in order to improve these areas to allow the pt. to be able to participate in all IADL's with improved comfort and efficiency. Plan of Care Interventions Electrical Stimulation,Gait Training,Hot Pack/Cold Pack,Manual Therapy,Mechanical Traction,Neuro Re- education,Patient/Caregiver Educati,Therapeutic Activities,Therapeutic Exercise PT Services Indicated Yes Treatment Frequency and 2x/week x 10 visits Duration These treatments will address the objective and functional deficits as defined above. The patient will be advanced safely and appropriately in order for the patient to progress towards his/her prior level of function. Additional exercises will be introduced and as well as a comprehensive home exercise program upon discharge, if needed, ?to ensure carryover of functional gains achieved in the clinic. This treatment plan has been reviewed and agreement upon by the patient.
--- NOTE | 2024-05-30 15:13 | OPREHPOC ---
Outpatient Therapy Plan of Care This is a Multidisciplinary Plan of Care that may contain components documented by all disciplines (PT, OT, and ST.) PT Problem 1 PT Problem #1 Knowledge Deficit PT Goal 1 Goal / Goal Update Pt. will be independent with a HEP focusing on trunk mobility and core strength. Target Visit 2 PT Problem 2 PT Problem #2 Impaired Range of Motion PT Goal 1 Goal / Goal Update Pt. will demonstrate full trunk flexion to be able to safely lift objects from floor to waist. Target Visit 5 PT Problem 3 PT Problem #3 Impaired Functional Mobil PT Goal 1 Goal / Goal Update Pt. will present with ability to tolerate 30 minutes of standing activities reporting pain levels at 2/10 at worst. Target Visit 10 PT Problem 4 PT Problem #4 Impaired Strength PT Goal 1 Goal / Goal Update Pt. will present with good upper and lower abdominal strength to improve pelvic and lumbar stability with standing activities. Pt. will present with 5/5 hip flexion and abduction strength on the right. Target Visit 10 PT Problem 5 PT Problem #5 Impaired Functional Mobil PT Goal 1 Goal / Goal Update Pt. will present with less than 20% limitation on the Modified Oswestry. Target Visit 10
--- NOTE | 2024-05-31 16:17 | PCPTNOTE ---
Patient did not show up for scheduled appointment this date.
--- NOTE | 2024-06-07 07:34 | PCPTNOTE ---
pt came into apt complaining of crampin in legs and was worried about doing therapy due to her history of blood clots. Educated pt on going to ER if worse. pt also educated on contacting physician and we will call drs office on pts complaints and concerns this am.
--- NOTE | 2024-07-30 17:36 | PCPTNOTE ---
Pt. attended her initial evaluation on 05/30/24. She failed to return to the clinic and has not contacted the clinic. She will be discharged from our care at this time. Aron Roque, MPT
== END 2024-05-30 20:00 | disposition home or self-care (01) ==
LOC: CHSPT 14:34
PROVIDERS: PCP Family Medicine; Visit Provider Registered Nurse
DX: M54.16 Radiculopathy, lumbar region (principal); M54.50 Low back pain, unspecified
CPT/HCPCS: 97110; 97161

== ENCOUNTER 2024-06-08 08:35 | Outpatient (CLI) | payer OTHER, SELFPAY ==
--- NOTE | ~2024-06-08 | CT_ITS ---
CT of the Abdomen and Pelvis: Indication: Abdominal pain Technique: 2.5 mm axial scans were obtained through the abdomen and pelvis following intravenous adm inistration of 100 cc of Omnipaque 350. Dose reduction technique was used on this scan by utilizing a utomated exposure control and iterative reconstruction technique. The dose-length product (DLP) was 9 20.66 mGy-cm. COMPARISON: 01/26/2023 Findings: Scans through the lung bases are unremarkable. There is micronodular contour of the liver with diffuse hepatic steatosis present. No focal hepatic m ass or biliary dilatation identified. Spleen is enlarged, measuring 15.3 cm in length. Probable small gallstone. The pancreas, adrenals and kidneys are within normal limits. There are atherosclerotic ca lcifications of the aorta. No lymphadenopathy. No bowel obstruction or bowel wall thickening. There is no evidence to suggest acute appendicitis. Images through the pelvis were performed. Urinary bladder unremarkable. No pelvic mass seen. No ascit es. Stable chronic T11 compression deformity Impression: Cirrhosis of the liver with associated splenomegaly. Underlying diffuse hepatic steatosis. Cholelithiasis. Reviewed, dictated and finalized at [facility]. Impression: Cirrhosis of the liver with associated splenomegaly. Underlying diffuse hepatic steatosis. Cholelithiasis.
[2024-06-08 08:54] LABS: Estimated Glomerular Filt Rate > 60
== END 2024-06-08 08:36 | disposition home or self-care (01) ==
LOC: CHSIMG 08:38
PROVIDERS: PCP Family Medicine; Visit Provider Registered Nurse
DX: R10.31 Right lower quadrant pain (principal); K74.60 Unspecified cirrhosis of liver; R16.1 Splenomegaly, not elsewhere classified; K76.0 Fatty (change of) liver, not elsewhere classified; K80.20 Calculus of gallbladder without cholecystitis without obstruction
CPT/HCPCS: 74177; Q9967

== ENCOUNTER 2024-06-25 13:29 | Outpatient (CLI) | payer OTHER, SELFPAY ==
--- NOTE | ~2024-06-25 | XR_ITS ---
EXAM: XR hip RT min 2V DATE: 06/25/2024 13:59 HISTORY: R Hip Pain,ACUTE ON CHRONIC,LBP . COMPARISON: None available. FINDINGS: Decreased mineralization. No fracture or dislocation. No lytic or blastic lesion. Lower kameron mbar degenerative disc disease. Mild degenerative change in the right hip and pubic symphysis. Mild s cattered pelvic enthesopathy. No erosion or periosteal change. Soft tissues within normal limits. IMPRESSION: Mild right hip osteoarthritis. Reviewed, dictated and finalized at location [facility].
--- NOTE | ~2024-06-25 | XR_ITS ---
EXAM: XR lumbar spine 2-3V DATE: 06/25/2024 13:59 HISTORY: R Hip Pain,ACUTE ON CHRONIC,LBP . COMPARISON: 05/08/2021. FINDINGS: 5 nonrib-bearing lumbar-type vertebral bodies. Pedicles intact. Normal vertebral body alig nment. Vertebral body heights preserved. Moderate narrowing L4-5 with vacuum phenomenon. Severe narro wing at L5-S1. Possible pars defect at L5. Moderate-severe mid and lower lumbar facet sclerosis and h ypertrophy. Abdominal aortic calcification without evident aneurysm. No fracture or dislocation. IMPRESSION: Lower lumbar degenerative disc disease, moderate-severe at L4-5 and severe at L5-S1. Poss ible pars defect at L5. Moderate-severe mid to lower lumbar facet arthropathy. Reviewed, dictated and finalized at location K. IMPRESSION: Lower lumbar degenerative disc disease, moderate-severe at L4-5 and severe at L5-S1. Possible pars defect at L5. Moderate-severe mid to lower lumb ar facet arthropathy.
== END 2024-06-25 13:30 | disposition home or self-care (01) ==
LOC: CHSLAB 13:32
PROVIDERS: PCP Physician Assistant; Visit Provider Physician Assistant
DX: M25.551 Pain in right hip (principal); M54.16 Radiculopathy, lumbar region; M51.36 Other intervertebral disc degeneration, lumbar region; M12.88 Other specific arthropathies, not elsewhere classified, other specified site; M16.11 Unilateral primary osteoarthritis, right hip
CPT/HCPCS: 72100; 73502

== ENCOUNTER 2025-04-02 16:51 | Outpatient (CLI) | payer OTHER, SELFPAY ==
[2025-04-02 17:43] LABS: Alanine Aminotransferase 38 U/L (6-35); Albumin Level 3.6 g/dL (3.5-5.1); Alkaline Phosphatase 91 U/L (38-126); Aspartate Amino Transferase 63 U/L (14-36); Bilirubin Direct < 0.1 mg/dL (0-0.3); Total Protein 6.2 g/dL (6.3-8.2)
== END 2025-04-02 16:52 | disposition home or self-care (01) ==
LOC: CHSLAB 16:56
PROVIDERS: PCP Family Medicine
DX: B35.1 Tinea unguium (principal)
CPT/HCPCS: 36415; 80076